=== PATIENT | female | born 1940 | race Caucasian/White ===

== ENCOUNTER 2016-09-13 20:20 | Inpatient (IN) | payer OTHER ==
--- NOTE | 2016-09-13 20:37 | EDPHY ---
H & P HPI/ROS: CHIEF COMPLAINT: Hip fracture. HISTORY OF PRESENT ILLNESS: The patient is a 76-year-old female, brought in by [employer] [facility] service from [facility], presenting with left hip fracture. The patient has been travelling throughout [facility] and [facility]. She slipped and fell 3 days ago and was found to have a left femoral neck fracture. Patient has received a total of 8mg morphine and 1500mg of Ibuprofen and Tylenol over 17 hour travel day. She is currently without pain. REVIEW OF SYSTEMS: A comprehensive 10 point review of systems is otherwise negative aside from elements mentioned in the history of present illness. Past Medical/Surgical History: Denies. Social History: , and son at bedside. Physical Exam: General Appearance: Alert, pleasant Eyes: Pupils equal and round, no conjunctival pallor ENT, Mouth: Mucous membranes moist Neck: Normal inspection Respiratory: Lungs are clear to auscultation Cardiovascular: Regular rate and rhythm Gastrointestinal: Abdomen is soft and non-tender Genitourinary: Mario catheter in place Neurological: A&O, nonfocal exam Skin: Warm and dry, no rash Extremities: Left hip tenderness, left leg shortened and externally rotated Vascular: 2+ dorsalis pedis pulse, capillary refill is brisk Psychiatric: Mood and affect normal Constitutional: Initial Vital Signs Temperature (C) 36.6 C 09/13/16 20:20 Heart Rate 82 09/13/16 20:20 Respiratory Rate 16 09/13/16 20:20 Blood Pressure 135/70 H 09/13/16 20:20 O2 Sat (%) 95 09/13/16 20:20 O2 Delivery Mode Room Air Allergies/Adverse Reactions: No Known Allergies Allergy (Verified 09/13/16 20:56) Home Medications: Medication Instructions Recorded Calcium Carbonate [Tums 500MG (*)] 500 - 1,000 mg PO DAILY 09/13/16 Herbals/Supplements -Info Only 1 ea PO DAILY 09/13/16 Multivitamins [Multivitamin (*)] 1 each PO DAILY 09/13/16 Medical Decision Making - Diagnostics EKG Interpretation: EKG interpreted by me reveals normal sinus rhythm, rate 75, low voltage, no ST or T segment changes. Impression: Borderline EKG Imaging Results: Imaging Impressions Hip X-Ray 09/13/16 20:35 Impression: Left subcapital hip fracture. Chest X-Ray 09/13/16 20:36 Impression: 1. No evidence for fat embolism. 2. New right upper lobe mass. Results discussed with Dr. Beasley at 9:00 PM Imaging: I viewed and interpreted images myself ED Course/Re-evaluation: Patient brought in by international air ambulance presents with left hip fracture, diagnosed in [facility]. Plan to repeat imaging. Patient is currently without pain, no pain medication administered. X-ray findings discussed with the patient and her family. Chest x-ray lung mass discussed with the patient. She understands the need for prompt follow-up. The patient will be admitted to the hospitalist, Dr. Tomas. 2100: I consulted with Dr. Lambert, Orthopedics, he will see the patient in the morning. Plan for operative repair of the left femoral neck fracture at 8: 00 a.m.. Differential Diagnosis: Differential diagnosis includes though it is not limited to open fracture, dislocation, pathologic fracture, neurovascular compromise. - Data Points Laboratory Results: Laboratory Results 09/13/16 20:40 09/13/16 20:40 09/13/16 09/13/16 20:40 20:40 WBC 7.43 10^3/uL 10^3/uL (3.80-9.50) RBC 4.40 10^6/uL 10^6/uL (4.18-5.33) Hgb 14.0 g/dL g/dL (12.6-16.3) Hct 42.8 % % (38.0-47.0) MCV 97.3 fL fL (81.5-99.8) MCH 31.8 pg pg (27.9-34.1) MCHC 32.7 g/dL g/dL (32.4-36.7) RDW 13.7 % % (11.5-15.2) Plt Count 185 10^3/uL 10^3/uL (150-400) MPV 10.4 fL fL (8.7-11.7) Neut % (Auto) 69.4 % % (39.3-74.2) Lymph % (Auto) 18.0 % % (15.0-45.0) Boyle % (Auto) 9.0 % % (4.5-13.0) Eos % (Auto) 2.8 % % (0.6-7.6) Baso % (Auto) 0.5 % % (0.3-1.7) Nucleat RBC Rel Count 0.0 % % (0.0-0.2) Absolute Neuts (auto) 5.15 10^3/uL 10^3/uL (1.70-6.50) Absolute Lymphs (auto) 1.34 10^3/uL 10^3/uL (1.00-3.00) Absolute Monos (auto) 0.67 10^3/uL 10^3/uL (0.30-0.80) Absolute Eos (auto) 0.21 10^3/uL 10^3/uL (0.03-0.40) Absolute Basos (auto) 0.04 10^3/uL 10^3/uL (0.02-0.10) Absolute Nucleated RBC 0.00 10^3/uL 10^3/uL (0-0.01) Immature Gran % 0.3 % % (0.0-1.1) Immature Gran # 0.02 10^3/uL 10^3/uL (0.00-0.10) Sodium 139 mEq/L mEq/L (134-144) Potassium 4.0 mEq/L mEq/L (3.5-5.2) Chloride 106 mEq/L mEq/L (97-110) Carbon Dioxide 25 mEq/l mEq/l (22-31) Anion Gap 8 mEq/L mEq/L (8-16) BUN 13 mg/dL mg/dL (7-23) Creatinine 0.6 mg/dL mg/dL (0.6-1.0) Estimated GFR > 60 Glucose 122 mg/dL H mg/dL (70-100) Calcium 8.6 mg/dL mg/dL (8.5-10.4) Departure - Departure Disposition: [facility] Inpatient Acute Clinical Impression: Lung mass Closed left hip fracture Qualifiers: Encounter type: initial encounter Qualified Code(s): S72.002A - Fracture of unspecified part of neck of left femur, initial encounter for closed fracture Condition: Fair Report Scribed for: Aida Beasley Report Scribed by: Holli Cates Date of Report: 09/13/16 Time of Report: 20:37 Physician Review and Approval Statement: 09/13/16 20:37 Portions of this note were transcribed by a neuropsychology medical consultant. I personally performed the history, physical exam, and medical decision-making; and confirmed the accuracy of the information in the transcribed note.
[2016-09-13 20:54] LABS: % IMMATURE GRANULYOCYTES 0.3 % (0.0-1.1); ABSOLUTE IMMATURE GRANULOCYTES 0.02 10^3/uL (0.00-0.10); ADD DIFF? NO; ADD MORPH? NO; ADD SCAN? NO; ATYPICAL LYMPHOCYTE FLAG 20 (0-99); FRAGMENT RBC FLAG 0 (0-99); HEMATOCRIT 42.8 % (38.0-47.0); LEFT SHIFT FLG 0 (0-99); LIPEMIA HEMOLYSIS FLAG 80 (0-99); MEAN CELL HEMOGLOBIN 31.8 pg (27.9-34.1); MEAN CELL HEMOGLOBIN CONCENTR. 32.7 g/dL (32.4-36.7); MEAN CELL VOLUME 97.3 fL (81.5-99.8); MEAN PLATELET VOLUME 10.4 fL (8.7-11.7); PLATELET CLUMPS FLAG 0 (0-99); PLATELET COUNT 185 10^3/uL (150-400); RED CELL DISTRIBUTION WIDTH 13.7 % (11.5-15.2)
--- NOTE | 2016-09-13 21:11 | CPEKG ---
Heart Rate: 75 RR Interval: 800 P-R Interval: 152 QRSD Interval: 80 QT Interval: 408 QTC Interval: 456 P [place]: 81 QRS [place]: 67 T Wave [place]: 19 EKG Severity - OTHERWISE NORMAL ECG - EKG Impression: SINUS RHYTHM EKG Impression: LOW VOLTAGE IN FRONTAL LEADS Electronically Signed By: Aida Beasley 13-Sep-2016 22:58:13
[2016-09-13 21:13] LABS: ANION GAP 8 mEq/L (8-16); CALCIUM 8.6 mg/dL (8.5-10.4); CARBON DIOXIDE 25 mEq/l (22-31); CHLORIDE 106 mEq/L (97-110); CREATININE 0.6 mg/dL (0.6-1.0); GLOMERULAR FILTRATION RATE > 60; GLUCOSE 122 mg/dL (70-100); SODIUM 139 mEq/L (134-144)
[2016-09-13] MEDS ORDERED: HYDROmorphONE/DILAUDID 1 MG/ML SYR IVP PRN (22:39)
[2016-09-13] MEDS ORDERED: ONDANSETRON 4 MG/2 ML VIAL IVP PRN (22:39)
[2016-09-13] MEDS ORDERED: 1/2 NS 1,000 ML IV SCH (22:45)
[2016-09-13] MEDS: ACETAMINOPHEN 325 MG TAB PO PRN (23:45)
--- NOTE | 2016-09-14 00:16 | GHP ---
[f rep st] HISTORY AND PHYSICAL DATE OF ADMISSION: 09/13/2016 CHIEF COMPLAINT: Hip fracture. HISTORY: This patient is a 76-year-old female who was vacationing in [facility]. She was staying at a 5-star hotel. [place] had [place] the [place] wearing water shoes, stepped into the elevator that had some water on the ground, and it caused her to slip and fall immediately to the ground with a subsequent left hip fracture. She was hospitalized at a hospital in [facility], and was offered surgery; however, she had purchased travel insurance, which gave [place] the option [place]. Her fall was on Friday, 3 days ago. She was getting DVT prophylaxis when hospitalized in [facility]. She flew here on [facility], and it was a 17-hour trip. She received IV morphine en route. She has ongoing left hip pain. She is otherwise without complaint. No chest pain, shortness of breath, fever, or cough. PAST MEDICAL HISTORY: Negative. PAST SURGICAL HISTORY: 1. Biceps tendon repair. 2. Right lung exploratory surgery which was determined to be scar tissue. MEDICATIONS: Please see computer record for full detailed list. ALLERGIES: No known drug allergies. SOCIAL HISTORY: Never has been a smoker. 1-2 alcoholic beverages 3-4 days per week. She lives with her . REVIEW OF SYSTEMS: Complete review of systems obtained. Review of systems negative regarding constitutional, HEENT, GI, pulmonary, cardiovascular, , hematology, skin, musculoskeletal, endocrine, psych, except for positives and negatives as noted in HPI. FAMILY HISTORY: Reviewed, noncontributory to the current complaint. PHYSICAL EXAMINATION: GENERAL: Well-developed, well-nourished female in no distress. VITAL SIGNS: Temperature is 36.6, pulse 85, blood pressure 145/84, saturating 91% on room air. HEENT: Eyes: Normal conjunctivae. Pupils equal, round, reactive to light. ENT: Normal ears and nose. Hearing intact. Normal teeth. Oropharynx moist. NECK: Trachea midline. No thyromegaly. CHEST: Normal respiratory effort. Lungs clear to auscultation bilaterally. CARDIOVASCULAR: Regular rate and rhythm. No murmur. No lower extremity edema. ABDOMEN: Soft , nontender. No hepatosplenomegaly. SKIN: Warm, dry, intact without rash. MUSCULOSKELETAL: No cyanosis or clubbing. Strength 5/5 in upper and lower extremities. NEUROLOGIC: Cranial nerves intact. Normal sensation to light touch. PSYCHIATRIC: Alert and oriented on x3. Normal affect. Normal judgment and insight. Normal memory. LABORATORY DATA: White count 7.43, hematocrit 42.8, platelets 185. Sodium 139 , potassium 4.0, chloride 106, bicarb 25, BUN 13, creatinine 0.6, glucose 122. EKG viewed by me, and my personal interpretation is normal sinus rhythm, no ST or T wave changes. Chest x-ray shows a new right upper lobe mass. Left hip x- ray shows a subcapital hip fracture. ASSESSMENT/PLAN: 1. Left hip fracture. Plan is to proceed with surgery in the morning. I will medically clear her, as there is no evidence of any cardiovascular concerns. Pain control overnight with intravenous Dilaudid. Deep venous thrombosis prophylaxis can be instituted postsurgery. 2. Right upper lobe mass. Will check a CT scan of the chest. CODE STATUS: Full. ADMISSION STATUS: Will admit to inpatient. Anticipate greater than 2 midnights. DEEP VENOUS THROMBOSIS PROPHYLAXIS: She is high risk. This can be instituted postsurgery. /[id number]/MODL MTDD
[2016-09-14] MEDS ORDERED: ceFAZolin 2 GM/DEXTROSE 100 ML IV ONE (07:55)
[2016-09-14] MEDS ORDERED: CEFAZOLIN 2 GM/DEXTROSE/100 ML BAG IV ONE (07:57)
[2016-09-14] MEDS ORDERED: ROCURONIUM 100 MG/10 ML VIAL ONE (08:07)
[2016-09-14] MEDS ORDERED: PROPOFOL 200 MG/20 ML VIAL ONE (08:07)
[2016-09-14] MEDS ORDERED: METOCLOPRAMIDE 10 MG/2 ML VIAL ONE (08:07)
[2016-09-14] MEDS ORDERED: DEXAMETHASONE 4 MG/ML VIAL ONE ×2 (08:07)
[2016-09-14] MEDS ORDERED: LIDOCAINE 2% 100 MG/5 ML SYR ONE (08:07)
[2016-09-14] MEDS ORDERED: HYDROmorphONE/DILAUDID 2 MG/ML INJ ONE (08:57)
--- NOTE | 2016-09-14 09:07 | PDANEPAE ---
ANE Past Medical History - Cardiovascular History Hx Hypertension: No Hx Arrhythmias: No Hx Chest Pain: No Hx Coronary Artery / Peripheral Vascular Disease: No Hx CHF / Valvular Disease: No Hx Palpitations: No - Pulmonary History Hx COPD: No Hx Asthma/Reactive Airway Disease: No Hx Recent Upper Respiratory Infection: No Hx Oxygen in Use at Home: No Hx Sleep Apnea: No Sleep Apnea Screening Result - Last Documented: Negative - Endocrine History Hx Diabetes: No Hypothyroid: No Hyperthyroid: No Obesity: no - Renal History Hx Renal Disorders: No - Liver History Hx Hepatic Disorders: No - Neurological & Psychiatric Hx Hx Neurological and Psychiatric Disorders: No - GI History GERD: no Hx Gastrointestinal Disorders: No - Chronic Pain History Chronic Pain: No ANE Patient History - Allergies Allergies/Adverse Reactions: No Known Allergies Allergy (Verified 09/13/16 20:56) - Home Medications Home Medications: Calcium Carbonate [Tums 500MG (*)] 500 - 1,000 mg PO DAILY 09/13/16 [Last Taken Unknown] Herbals/Supplements -Info Only 1 ea PO DAILY 09/13/16 [Last Taken Unknown] Multivitamins [Multivitamin (*)] 1 each PO DAILY 09/13/16 [Last Taken Unknown] - NPO status NPO Since - Liquids (Date): 09/13/16 NPO Since - Liquids (Time): 00:00 NPO Since - Solids (Date): 09/13/16 NPO Since - Solids (Time): 00:00 - Smoking Hx Smoking Status: Never smoked ANE Labs/Vital Signs - Labs Result Diagrams: 09/13/16 20:40 09/13/16 20:40 - Vital Signs Blood Pressure: 170/92 Heart Rate: 85 Respiratory Rate: 12 O2 Sat (%): 95 Height: 172.72 cm Weight: 59.874 kg ANE Physical Exam - Airway Mallampati Score: Class 1 Mouth exam: normal dental/mouth exam - Pulmonary Pulmonary: no respiratory distress - Cardiovascular Cardiovascular: regular rate and rhythym - ASA Status ASA Status: I
[2016-09-14] MEDS ORDERED: BUPIVACAINE/EPI 0.5% 30 ML SDV ONE (09:54)
[2016-09-14] MEDS ORDERED: ACETAMINOPHEN 500 MG TAB PO PRN (10:19)
[2016-09-14] MEDS ORDERED: fentaNYL 100 MCG/2 ML INJ IVP PRN (10:19)
[2016-09-14] MEDS ORDERED: NALOXONE HCL 0.4 MG/ML INJ IVP PRN (10:19)
[2016-09-14] MEDS ORDERED: HYDROCODONE/APAP 5/325 TAB PO PRN (10:19)
[2016-09-14] MEDS ORDERED: ONDANSETRON 4 MG/2 ML VIAL IVP PRN (10:19)
[2016-09-14] MEDS ORDERED: OXYCODONE/APAP 5/325 TAB PO PRN (10:19)
[2016-09-14] MEDS ORDERED: MEPERIDINE 25 MG/ML SYR IVP PRN (10:19)
[2016-09-14] MEDS ORDERED: LR 500 ML IV PRN (10:19)
--- NOTE | 2016-09-14 10:19 | POSTANESTH ---
Post Anesthetic Evaluation Respiratory Status: Normal, Stable Level of Consciousness/Mental Status: Can Participate in Eval Pain Control: Adequate, Prn Tx Ordered Nausea/Vomiting Control: Adequate, Prn Tx Ordered
[2016-09-14] MEDS ORDERED: fentaNYL 100 MCG/2 ML INJ ONE (10:20)
[2016-09-14] MEDS ORDERED: HYDROmorphONE/DILAUDID 1 MG/ML SYR ONE (10:20)
[2016-09-14] MEDS ORDERED: POLYETHYLENE GLYCOL 3350 17 GM PKT PO PRN (10:31)
[2016-09-14] MEDS ORDERED: TEMAZEPAM 15 MG CAP PO PRN (10:31)
[2016-09-14] MEDS ORDERED: oxyCODONE IR 5 MG TAB PO PRN (10:31)
[2016-09-14] MEDS ORDERED: diphenhydrAMINE 25 MG CAP PO PRN (10:31)
[2016-09-14] MEDS ORDERED: DIPHENOXYLATE/ATROPINE LOMOTIL 1 TAB PO PRN (10:31)
[2016-09-14] MEDS ORDERED: PROMETHAZINE HCL 25 MG/ML INJ IVP PRN (10:31)
[2016-09-14] MEDS ORDERED: PHARMACY PAIN CONSULT 1 EA MISC PRN (10:31)
[2016-09-14] MEDS ORDERED: BISACODYL 10 MG SUPP PR PRN (10:31)
[2016-09-14] MEDS ORDERED: traMADol 50 MG TAB PO PRN (10:31)
[2016-09-14] MEDS ORDERED: LACTULOSE 20 GM/30 ML UDCUP PO PRN (10:31)
[2016-09-14] MEDS ORDERED: MAGNESIUM HYDROXIDE 30 ML UDCUP PO PRN (10:31)
[2016-09-14] MEDS ORDERED: METOCLOPRAMIDE 10 MG/2 ML VIAL IVP PRN (10:31)
--- NOTE | 2016-09-14 10:31 | POSTOPPROG ---
Post Op Note Date of Operation: 09/14/16 Surgeon: Reddy Lambert Solar Photovoltaic Designer: Rachael Carmichael MD, Keith Malcolm Anesthesia: GET(General Endotracheal) Pre-op Diagnosis: Left femoral neck fx Post-op Diagnosis: hip fracture Procedure: Left VINOD via ant approach Findings: Displaced lt femoral neck fx Inf/Abcess present in the surg proc area at time of surgery?: No EBL: 100-500 Complications: none
[2016-09-14] MEDS: HYDROmorphONE/DILAUDID 1 MG/ML SYR IVP PRN ×2 (10:53→11:10)
[2016-09-14] MEDS ORDERED: LR 1,000 ML IV SCH (11:00)
--- NOTE | 2016-09-14 13:32 | GCON ---
[f rep st] CONSULTATION ORTHOPEDIC CONSULTATION DATE OF CONSULTATION: 09/14/2016 REASON FOR CONSULTATION: Left hip fracture. HISTORY OF PRESENT ILLNESS: The patient is a 76-year-old female, who was traveling in [facility], when she slipped and fell on an elevator and broke her left hip. This happened about 3 days ago. X-ray s were obtained there. She was able to fly back to the [facility]. Admitted to the hospital last night and the plan is for a total hip arthroplasty on the left, today in the operating room. PRIOR MEDICAL HISTORY: None. PRIOR SURGICAL HISTORY: Biceps tendon repair. Lung biopsy. MEDICATIONS: Please see attached list. ALLERGIES: No known drug allergies. SOCIAL HISTORY: Occasional alcohol use. No smoking. She is , lives here in town with her h [employer]. 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 Works out regularly at the gym. REVIEW OF SYSTEMS: Other than left hip pain. She is negative for shortness of breath, chest pain. PHYSICAL EXAM: GENERAL: A healthy appearing, 76-year-old female. VITAL SIGNS: This morning, bloo d pressure is 162/94, heart rate 88, respiratory rate is 17, she is saturating 91% on room air. Tem perature is 36.8. Laboratory data: White blood cells are 7.4, hemoglobin 14, hematocrit 42. Chemistry: Her glucose is slightly elevated at 122, otherwise, chemistry values are normal. HEENT: Normocephalic, atraumatic. Extraocular muscles intact. NECK: Supple. There is no lymphad enopathy. No JVD. CHEST: Clear to auscultation. CARDIOVASCULAR: Regular rate and rhythm. ABDOM EN: Soft, nontender, nondistended. EXTREMITY: Focusing on the left, leg is short, externally rotated. Pain with any movement of the left hip. SKIN: Intact. Compartments are soft. No calf tenderness. She has 5/5 ankle dorsiflexion, plantar flexion strength, 1+ dorsalis pedis, posterior tibial pulses. IMAGING: X-rays are reviewed. They show a displaced femoral neck fracture, unchanged from injury f ilms about 3 days ago in [facility]. PLAN: The patient and I spent 15 minutes reviewing the x-ray findings. 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 I think she would be best served by a total hip arthroplasty. That would allow her to mobi lize quickly. I think any other option may need revision surgery in the future, and she would like to avoid that, so we will plan on a total hip arthroplasty this morning in the operating room. /[id number]/MODL
[2016-09-14] MEDS: KETOROLAC 30 MG/1 ML SDV IVP PRN ×2 (13:39→21:24)
[2016-09-14] MEDS: CYCLOBENZAPRINE 10 MG TAB PO PRN (13:39)
[2016-09-14] MEDS: ceFAZolin 2 GM/DEXTROSE 100 ML IV SCH ×2 (13:40→21:25)
--- NOTE | 2016-09-14 14:36 | HOSPPROG ---
Hospitalist Progress Note Assessment/Plan: 76 y/o female s/p fall while in [facility] presenting with #left hip fracture POD 0 ORIF #Right upper lobe mass -ct pending Plan -continue routine postop care -await chest ct continue inpatient care Subjective: pain controlled no new complaints Objective: Vital Signs Temp Pulse Resp BP Pulse Ox 36.9 C 90 18 128/74 H 95 09/14/16 14:04 09/14/16 14:04 09/14/16 14:04 09/14/16 14:04 09/14/16 14:04 09/13/16 09/14/16 09/15/16 05:59 05:59 05:59 Intake Total 500 1600 Output Total 1450 300 Balance -950 1300 - Physical Exam Constitutional: no apparent distress, appears nourished, not in pain Cardiovascular: regular rate and rhythym, no murmur, rub, or gallop Respiratory: no respiratory distress, no rales or rhonchi, clear to auscultation Gastrointestinal: normoactive bowel sounds, soft, non-tender abdomen, no palpable masses ICD10 Worksheet Patient Problems: Problems Problem Status Onset Closed left hip fracture Acute Lung mass Acute
[2016-09-14] MEDS: ACETAMINOPHEN 325 MG TAB PO PRN (18:39)
--- NOTE | 2016-09-14 20:08 | GOP ---
[f rep st] OPERATIVE REPORT DATE OF OPERATION: 09/14/2016 SURGEON: Reddy Lambert MD LINE O SCRIBE OPERATOR: MD Wil Agosto, [facility], [facility] ANESTHESIA: General. ANESTHESIOLOGIST: Madan Givnes MD PREOPERATIVE DIAGNOSIS: Left femoral neck fracture. POSTOPERATIVE DIAGNOSIS: Left femoral neck fracture. PROCEDURE PERFORMED: Left total hip arthroplasty through an anterior approach. FINDINGS: ESTIMATED BLOOD LOSS: 200 mL. INDICATIONS: The patient is a 76-year-old female, who fell on Friday in [facility] and sustained a hi p fracture. Her family made the decision to fly her back here to the [facility] for definitive treatmen t of her fracture. The decision was made to proceed with a total hip arthroplasty. DESCRIPTION OF PROCEDURE: After appropriate informed consent was obtained, the patient was taken to the operating room and placed supine on the operating table. Time-out was performed. The patient was identified. The correct site was identified and matched with radiographs in the room. Followin g the induction of general endotracheal tube anesthesia, the patient was positioned on the operating room table with the left lower extremity supported by the arch table and the right lower extremity supported by a well-padded well leg merida. We brought in FluoroScan and took an AP pelvis just so we had an idea of leg length moving forward and then the left hip was then prepped and draped in the usual sterile fashion. I made a standard anterior incision. Soft tissue was carefully dissected. Bleeding was controlled with electrocautery. I incised the fascia over the TFL and bluntly dissected down to the interval, finding the circumflex femoral vessels. These were cauterized with the Aquamantys device. Then usi ng a Rubalcava elevator, I carefully elevated the soft tissues off the anterior aspect of the hip. A ret ractor was placed around the inferior femoral neck and superior femoral neck. I incised the capsule and this was removed to give us better exposure. The head and neck were removed with a corkscrew d evice. I then used the oscillating saw to freshen our femoral neck cut. A retractor was placed zeus und the anterior, inferior and superior aspect of the acetabulum, giving us good visualization. The remaining soft tissue was removed from the acetabulum. We then started reaming and reamed up to a size 51 sequentially. We trialed a 51. I was happy with its position with an AP fluoroscopic spot film. We then tapped our hemispherical liner in place. Placed 1 superior screw after drilling a airplane pilot helper hole and tapped our neutral poly liner into place. I then turned my attention to the femur. A retractor was placed around the proximal femur and aroun d the greater trochanter. The remaining posterior tissues were removed and the capsule was excised. The leg was then externally rotated to 90 degrees. I was able mobilize the femur and so I extende d the femur down to the ground and adducted it 30 degrees. We then used our femoral canal finding d evice to enter the femur and then broached up to a size 6. That gave us good purchase. We then tri aled a 0 head and brought the leg back up into extension, neutral rotation. There was good stabilit y with that neutral head. Leg lengths were slightly long on the left with an AP fluoroscopic film. I then placed the final #6 stem and we trialed both a -4 and a 0 head. The 0 head gave us better s tability so she was a millimeter or two long with that, but I was satisfied with that, given the imp roved stability with that construct. We then tapped our final head in place and reduced the hip a final time. We irrigated the wound and took a final x-ray. The fascia overlying the TFL was closed with 0 Vicryl. The superficial layer was closed with 2-0 Vicryl. The skin was closed with a running V-Loc stitch in a subcuticular fashi on. I instilled 20 mL of 0.5% Marcaine around the incision. A sterile dressing was applied. CARIN h ose and SCDs were applied. The patient was awakened from anesthesia, and taken to the recovery room in satisfactory condition. There were no immediate intraoperative complications. COMPLICATIONS: None. DRAINS: None. IMPLANTS USED: Shahana Accolade-II 232 degrees angle, size 6 stem, 52 hemispherical cup with a neut ral poly liner, one 6.5 mm bone screw, and a +0 ceramic Biolox delta head. /[id number]/MODL
[2016-09-14] MEDS: SENNOSIDES/DOCUSATE SODIUM TAB PO SCH (21:25)
[2016-09-14] MEDS: FAMOTIDINE 20 MG TAB PO SCH (21:25)
[2016-09-15] MEDS: ACETAMINOPHEN 325 MG TAB PO PRN ×3 (04:29→19:42)
[2016-09-15 04:53] LABS: HEMATOCRIT 36.5 % (38.0-47.0); HEMOGLOBIN 12.2 g/dL (12.6-16.3)
[2016-09-15] MEDS: SENNOSIDES/DOCUSATE SODIUM TAB PO SCH ×2 (08:24→19:42)
[2016-09-15] MEDS: RIVAROXABAN 10 MG TAB PO SCH (08:24)
[2016-09-15] MEDS: FAMOTIDINE 20 MG TAB PO SCH ×2 (08:24→19:42)
[2016-09-15] MEDS: CYCLOBENZAPRINE 10 MG TAB PO PRN (08:29)
--- NOTE | 2016-09-15 12:13 | HOSPPROG ---
Hospitalist Progress Note Assessment/Plan: 76 y/o female s/p fall while in [facility] presenting with #left hip fracture POD 1 ORIF -continue routine postop care per ortho #Right upper lobe mass -ct pending #tachycardia without chest pain or sob -ekg -monitor continue inpatient care Subjective: no chest pain. no fevers or chills. tolerating diet. feeling better today than yesterday Objective: Vital Signs Temp Pulse Resp BP Pulse Ox 36.5 C 56 L 16 102/64 92 09/15/16 07:25 09/15/16 07:25 09/15/16 07:25 09/15/16 07:25 09/15/16 07:25 Laboratory Results 09/15/16 04:34 09/14/16 09/15/16 09/16/16 05:59 05:59 05:59 Intake Total 500 2825 Output Total 1450 2700 Balance -950 125 - Physical Exam Constitutional: no apparent distress, appears nourished, not in pain Cardiovascular: no murmur, rub, or gallop, tachycardia, No systolic murmur, No JVD, No edema Respiratory: no respiratory distress, no rales or rhonchi, clear to auscultation , No rhonchi Gastrointestinal: normoactive bowel sounds, soft, non-tender abdomen, no palpable masses, No guarding, No rebound Neurologic: AAOx3, sensation intact bilaterally ICD10 Worksheet Patient Problems: Problems Problem Status Onset Closed left hip fracture Acute Lung mass Acute
[2016-09-15] MEDS: KETOROLAC 30 MG/1 ML SDV IVP PRN ×2 (12:57→19:42)
[2016-09-15] MEDS ORDERED: IOPAMIDOL (ISOVUE-300) 100 ML BTL ONE (13:17)
--- NOTE | 2016-09-15 15:38 | SOAPPROG ---
SOAP Progress Note Assessment/Plan: Assessment: POD#1 LT VINOD Plan: 09/15/16 15:37 PT/OT WBAT xarelto x 21 days Keep incision covered x 7 days F/U [place] 2 weeks Anticipate DC home Friday Subjective: Did well with PT Today Pain controlled Objective: DRessing c/d/i leg lengths equal calf soft 5/5 df/pf Vital Signs Temp Pulse Resp BP Pulse Ox 36.5 C 56 L 16 102/64 92 09/15/16 07:25 09/15/16 07:25 09/15/16 07:25 09/15/16 07:25 09/15/16 07:25 Laboratory Results 09/15/16 04:34 09/14/16 09/15/16 09/16/16 05:59 05:59 05:59 Intake Total 500 2825 Output Total 1450 2700 500 Balance -950 125 -500 ICD10 Worksheet Patient Problems: Problems Problem Status Onset Closed left hip fracture Acute Lung mass Acute
[2016-09-16] MEDS: ACETAMINOPHEN 325 MG TAB PO PRN (04:25)
[2016-09-16] MEDS: KETOROLAC 30 MG/1 ML SDV IVP PRN (04:25)
[2016-09-16 05:13] LABS: HEMATOCRIT 32.7 % (38.0-47.0); HEMOGLOBIN 10.7 g/dL (12.6-16.3)
[2016-09-16] MEDS: SENNOSIDES/DOCUSATE SODIUM TAB PO SCH (08:26)
[2016-09-16] MEDS: FAMOTIDINE 20 MG TAB PO SCH (08:27)
[2016-09-16] MEDS: RIVAROXABAN 10 MG TAB PO SCH (08:27)
[2016-09-16 08:33] VITALS: BP 107/61; PULSE 101; RESP 16; TEMP 97.9; O2SAT 93
--- NOTE | 2016-09-16 19:50 | GDS ---
[f rep st] DISCHARGE SUMMARY DISCHARGE DIAGNOSES: 1. Left hip fracture postoperative day 2, ORIF. 2. Right upper lobe mass. 3. Resolved tachycardia. CONSULTANTS: Dr. Reddy Lambert, Orthopedics. HOSPITAL COURSE AND STAY BY PROBLEM: 1. Left femoral neck fracture. The patient was transferred from [facility] via [facility] after she sustained a mechanical fall while on vacation. She was taken the operating room by Dr. Lambert on 09/14/2016, where she underwent a left total hip arthroplasty with an anterior approach . Postoperatively, she has done well. On day of discharge, she has been cleared by Dr. Lambert wh o has recommended that she be discharged to complete 21 days of Xarelto. She should follow up with Dr. Lambert in 2 weeks. 2. Right upper lobe mass. The patient has a history of right upper lobe mass that had been biopsie d and reported to be benign. Initial chest x-ray on admission revealed a persistent right upper lob e mass. A chest CT was done on 09/15/2016, which revealed dominant nodules in the right upper lobe. I discussed this finding with the patient, who plans to follow up with her oncologist, Dr. Rachael vazquez, to further decide if she would like to undergo another biopsy versus a PET scan. Physical exam on day of discharge: Blood pressure 107/61, pulse of 101, respiratory rate 16, O2 sat uration 93% on room air. In general, in no acute distress. Heart S1, S2. Lungs are clear. Pertinent labs and studies: Chest CT done on 09/15/2016, refer to report. DISCHARGE MEDICATIONS: Please refer to discharge medication reconciliation in [facility] for details. DISCHARGE DISPOSITION: The patient will be discharged home. DISCHARGE INSTRUCTIONS: Once again, she was instructed to follow up with Dr. Rachael Westbrook regarding further evaluation of her mass. She should also follow up with Dr. Lambert as requested. TIME SPENT: Greater than 30 minutes was spent on the discharge of this patient. /[id number]/MODL
== END 2016-09-16 14:01 | disposition home or self-care (01) | DRG 470 ==
LOC: EDUNIT# → F3N 22:15
PROVIDERS: ADMIT Internal Medicine; ATTEND Internal Medicine
PROC: 0SRB04Z Replacement of Left Hip Joint with Ceramic on Polyethylene Synthetic Substitute, Open Approach (ICD-10-PCS; principal; 2016-09-14 08:00)
DX: S72.012A Unspecified intracapsular fracture of left femur, initial encounter for closed fracture (principal); W01.0XXA Fall on same level from slipping, tripping and stumbling without subsequent striking against object, initial encounter; Y92.59 Other trade areas as the place of occurrence of the external cause; R91.8 Other nonspecific abnormal finding of lung field; R00.0 Tachycardia, unspecified
CPT/HCPCS: 97110-GP; 97116-GP; 97162-GP; 97165-GO; 97535-GO; C1713; G8978-GP-CI; G8978-GP-CJ; G8979-GP-CI; G8980-GP-CI; G8987-GO-CJ; G8988-GO-CH; J0690; J1100; J1170; J1885; J2001; J2704; J2765; J3010; Q9967

== ENCOUNTER → 2016-10-24 | Outpatient (CLI) | payer OTHER | LOC: FIMAGING 15:33 | PROVIDERS: ATTEND Internal Medicine | DX: Z12.31 Encounter for screening mammogram for malignant neoplasm of breast (principal) | CPT/HCPCS: G0202 ==

== ENCOUNTER 2016-12-19 12:40 | Day surgery (SDC) | payer OTHER ==
[2016-12-19] MEDS ORDERED: NS 500 ML IV ONE (12:54)
[2016-12-19] MEDS ORDERED: LIDOCAINE 1% 2 ML INJ ID PRN (12:54)
[2016-12-19] MEDS ORDERED: LIDOCAINE 1% 2 ML INJ ONE (13:00)
[2016-12-19 13:14] VITALS: PULSE 81; TEMP 97.5
[2016-12-19] MEDS ORDERED: LIDOCAINE 1% 300 MG/30 ML SDV ONE (13:15)
[2016-12-19] MEDS ORDERED: BENZOCAINE UNIT DOSE SPRAY HURRICAINE MM ONE (13:15)
[2016-12-19] MEDS ORDERED: ALBUTEROL 3 ML DEYVIAL ONE ×2 (13:15→13:47)
[2016-12-19] MEDS ORDERED: LIDOCAINE HCL 4% TOPICAL SOLN 50ML ONE (13:15)
[2016-12-19] MEDS ORDERED: LIDOCAINE 2% JELLY 5 ML TUBE ONE (13:15)
[2016-12-19] MEDS ORDERED: MIDAZOLAM 2 MG/2 ML VIAL ONE (13:16)
[2016-12-19] MEDS ORDERED: fentaNYL 100 MCG/2 ML INJ ONE ×2 (13:16→14:14)
--- NOTE | 2016-12-19 15:25 | PDPROPOC ---
Sedation Plan of Care Sedation Plan of Care: vital signs stable, mental status noted, patient educated of risks, benefits, alternatives, patient can tolerate sedation ASA Classification: ASA 1 Planned drugs: fentanyl, midazolam Mallampati Score: Class 1 Mallampati Reference Image: Patient passed 3-3-2 rule?: Yes
[2016-12-19 16:17] VITALS: RESP 14
[2016-12-19 16:45] VITALS: BP 127/84; O2SAT 90
== END 2016-12-19 16:55 | disposition home or self-care (01) ==
LOC: FSGY 12:40
PROVIDERS: ATTEND Internal Medicine Pulmonary Disease
PROC: 0BBC8ZX Excision of Right Upper Lung Lobe, Via Natural or Artificial Opening Endoscopic, Diagnostic (ICD-10-PCS; principal; 2016-12-19 14:00)
DX: R91.8 Other nonspecific abnormal finding of lung field (principal)
CPT/HCPCS: J0171; J2250; J3010

== ENCOUNTER → 2017-01-01 | Outpatient (CLI) | payer OTHER | LOC: BMCIMAGING 13:50 | PROVIDERS: ATTEND Internal Medicine | DX: J18.9 Pneumonia, unspecified organism (principal); J06.9 Acute upper respiratory infection, unspecified ==

== ENCOUNTER → 2017-01-08 | Outpatient (CLI) | payer OTHER | LOC: FLAB 11:28 | PROVIDERS: ATTEND Internal Medicine Pulmonary Disease | DX: J18.9 Pneumonia, unspecified organism (principal) ==

== ENCOUNTER → 2017-01-24 | Outpatient (CLI) | payer OTHER | LOC: FIMAGING 10:34 | PROVIDERS: ATTEND Internal Medicine Pulmonary Disease | DX: J18.9 Pneumonia, unspecified organism (principal) ==

== ENCOUNTER → 2017-02-06 | Outpatient (CLI) | payer OTHER | LOC: FIMAGING 14:11 | PROVIDERS: ATTEND Internal Medicine Pulmonary Disease | DX: R91.8 Other nonspecific abnormal finding of lung field (principal) ==

== ENCOUNTER → 2017-03-26 | Outpatient (CLI) | payer OTHER, MEDICARE | LOC: FIMAGING 15:25 | PROVIDERS: ATTEND Internal Medicine Pulmonary Disease | DX: R91.8 Other nonspecific abnormal finding of lung field (principal); J21.9 Acute bronchiolitis, unspecified ==

== ENCOUNTER → 2017-09-26 | Outpatient (CLI) | payer OTHER, MEDICARE | LOC: FIMAGING 13:05 | DX: R91.8 Other nonspecific abnormal finding of lung field (principal) ==

== ENCOUNTER → 2018-03-21 | Outpatient (CLI) | payer OTHER, MEDICARE | LOC: FIMAGING 10:23 | DX: R91.8 Other nonspecific abnormal finding of lung field (principal) ==